=== PATIENT | female | born 1970 | race Caucasian/White ===

== ENCOUNTER 2018-02-16 23:05 | Emergency (ER) | payer OTHER ==
[~2018-02-16] VITALS: Ht 167.6 cm; Wt 118.8 kg
[~2018-02-16 23:05] MED LIST: NO HOME MEDS
[2018-02-17] MEDS ORDERED: NORCO 7.5/321 TABLET PO (01:06)
[2018-02-17] MEDS ORDERED: MOTRIN800 MG PO (01:06)
[2018-02-17] MEDS ORDERED: VALIUM5 MG PO (01:06)
[2018-02-17 01:26] VITALS: BP 137/85
== END 2018-02-17 01:37 | disposition home or self-care (01) ==
LOC: EME 23:05
DX: S39.012A Strain of muscle, fascia and tendon of lower back, initial encounter (principal); M54.42 Lumbago with sciatica, left side; W18.40XA Slipping, tripping and stumbling without falling, unspecified, initial encounter; Y93.01 Activity, walking, marching and hiking; I10 Essential (primary) hypertension; Z88.5 Allergy status to narcotic agent
CPT/HCPCS: 99281; 99284; J1885; J3010